=== PATIENT | male | born 1990 | race African-American/Black ===

== ENCOUNTER 2020-02-28 22:12 | Emergency (ER) | payer SELFPAY ==
[2020-02-28] MEDS ORDERED: ACETAMINOPHEN 325 MG TABLET PO ONE (23:48)
[2020-02-29 00:06] LABS: APPEARANCE,URINE SLIGHTLY-CLOUDY; BILIRUBIN,URINE NEGATIVE (NEGATIVE); COLOR,URINE YELLOW; GLUCOSE, URINE NEGATIVE (NEGATIVE); KETONES,URINE 80 mg/dL (NEGATIVE); LEUKOCYTE ESTERASE,URINE NEGATIVE (NEGATIVE); NITRITE,URINE NEGATIVE (NEGATIVE); PROTEIN,URINE >=500 mg/dL (NEGATIVE); URINE SPECIFIC GRAVITY 1.015; UROBILINOGEN,URINE NEGATIVE mg/dL (<2.0)
[2020-02-29 00:11] LABS: ABSOLUTE BASOPHILS # (AUTO) 0.1 10^3/uL (0.0-0.2); ABSOLUTE LYMPHOCYTES (AUTO) 0.7 10^3/uL (0.5-4.7); ABSOLUTE MONOCYTES (AUTO) 0.6 10^3/uL (0.1-1.4); ABSOLUTE NEUT (AUTO) 7.1 10^3/uL (1.7-8.2); BASOPHILS % (AUTO) 0.7 % (0-2); EOSINOPHILS % (AUTO) 0.6 % (0-6); HEMATOCRIT 45.9 % (37.9-51.0); HEMOGLOBIN 16.6 g/dL (13.5-17.0); LYMPHOCYTES % (AUTO) 8.6 % (13-45); MEAN CORPUSCULAR HEMOGLOBIN 31.6 pg (27.0-33.4); MEAN CORPUSCULAR HGB CONC 36.2 g/dL (32.0-36.0); MEAN CORPUSCULAR VOLUME 87 fl (80-97); MONOCYTES % (AUTO) 6.8 % (3-13); PLATELET COUNT 292 10^3/uL (150-450); RED BLOOD COUNT 5.25 10^6/uL (4.35-5.55); SEGMENTED NEUTROPHILS % (AUTO) 83.3 % (42-78); TOTAL CELLS COUNTED % (AUTO) 100 %; WHITE BLOOD COUNT 8.5 10^3/uL (4.0-10.5)
[2020-02-29 00:16] LABS: ALBUMIN 5.3 g/dL (3.5-5.0); ALKALINE PHOSPHATASE 110 U/L (38-126); ANION GAP 13 (5-19); ASPARTATE AMINO TRANSFERASE 35 U/L (17-59); BILIRUBIN,DIRECT 0.3 mg/dL (0.0-0.4); BILIRUBIN,TOTAL 1.2 mg/dL (0.2-1.3); BLOOD UREA NITROGEN 14 mg/dL (7-20); CARBON DIOXIDE 24 mmol/L (22-30); CHLORIDE 101 mmol/L (98-107); GLUCOSE 83 mg/dL (75-110); POTASSIUM 4.8 mmol/L (3.6-5.0); TOTAL PROTEIN 8.7 g/dL (6.3-8.2)
[2020-02-29 00:18] LABS: ACETAMINOPHEN < 10 ug/mL (10-30); ALCOHOL < 10 mg/dL (NONE DETECTED); SALICYLATE < 1.0 mg/dL (2.0-20.0)
[2020-02-29 00:27] LABS: URINE AMPHETAMINES SCREEN NEGATIVE; URINE BARBITURATES SCREEN NEGATIVE; URINE BENZODIAZEPINES SCREEN NEGATIVE; URINE METHADONE SCREEN NEGATIVE; URINE PHENCYCLIDINE SCREEN NEGATIVE
[2020-02-29 00:57] LABS: URINE COCAINE SCREEN UNCONFIRMED POSITIVE; URINE MARIJUANA (THC) SCREEN UNCONFIRMED POSITIVE
--- NOTE | 2020-02-29 01:39 | RADIOLOGY REPORT (SQ) ---
EXAM: CT HEAD WITHOUT CLINICAL INDICATION: 30-year-old male with first time seizure. COMPARISON: None. TECHNIQUE: CT brain without contrast. This exam was performed according to our departmental dose optimization program which includes use of automated exposure control, adjustment of the mA and/or kV according to patient size and/or use of iterative reconstruction technique. FINDINGS: Streak and motion artifact limits evaluation. The ventricles, sulci, and cisterns are within normal limits. The huitron-white matter differentiation is preserved. There is no mass effect, midline shift, intra- or extra-axial fluid collection/acute hemorrhage. The osseous structures are unremarkable. The paranasal sinuses and mastoid air cells are clear. IMPRESSION: No acute intracranial abnormalities. In the setting of first time seizure, further evaluation with MRI is recommended.
--- NOTE | 2020-02-29 01:56 | ER Document Report ---
ED General <DONATOHANK - Last Filed: 02/29/20 12:16> <ALEX CARLSON - Last Filed: 03/02/20 00:10> <HALIMA THAKKAR - Last Filed: 03/02/20 07:27> - General Chief Complaint: Seizure Stated Complaint: POSSIBLE SEIZURES Primary Care Provider: [facility] [Outside] - Follow up as needed [facility] [Outside] - Follow up as needed Notes: 30-year-old male denying any past medical history, history of depression pr esents with possible seizure approximately 1 week prior to arrival and suicidal ideation. Patient says that he is having a mental breakdown and does not want to live anymore. Repeatedly asked patient to elaborate on his symptoms but he refuses to. Patient endorses having been on Prozac in the past, but will not elaborate. Patient says that he had a seizure Friday and denies having ever had a seizure before, but not willing to give details. Patient endorses using marijuana and cocaine recently and being tired. Patient denies any trauma, alcohol/benzo/barbiturate abuse or withdrawal, weakness or numbness, change in vision/speech/gait, vertigo, bleeding diatheses, anticoagulation, IV drug use. Endorses mild diffuse headache for the past hour. (HALIMA THAKKAR) - Related Data Allergies/Adverse Reactions: No Known Allergies Allergy (Unverified 02/29/20 08:45) Past Medical History - Social History Family History: Reviewed & Not Pertinent <ALEX CARLSON - Last Filed: 03/02/20 00:10> - General Information source: Patient - Social History Smoking Status: Current Every Day Smoker Frequency of alcohol use: Occasional <HALIMA THAKKAR - Last Filed: 03/02/20 07:27> Review of Systems - Review of Systems -: Yes ROS unobtainable due to patient's medical condition - Secondary to patient cooperation <HALIMA THAKKAR - Last Filed: 03/02/20 07:27> Physical Exam <HALIMA THAKKAR - Last Filed: 03/02/20 07:27> - Vital signs Vitals: Temp 97.9 F 02/28/20 22:14 - Notes Notes: PHYSICAL EXAMINATION: GENERAL: Well-appearing, well-nourished somnolent young male lying in stretcher with no visible signs of discomfort HEAD: Atraumatic, normocephalic. EYES: Pupils equal round and appropriate constriction, sclera anicteric, conjunctiva are normal. ENT: nares patent, moist mucous membranes. NECK/BACK: Normal range of motion, supple without lymphadenopathy, no C /T/L/spinal tenderness or deformity LUNGS: Breath sounds clear to auscultation bilaterally and equal. No wheezes rales or rhonchi. Normal respiratory rate and effort HEART: Regular rate and rhythm without murmurs ABDOMEN: Soft, nontender, no guarding, no masses, no CVAT EXTREMITIES: Normal range of motion, no pitting or edema. No cyanosis. NEUROLOGICAL: Awake, alert, conversing appropriately, moves all extremities spontaneously, cranial nerves grossly intact but exam limited by patient lack of cooperation PSYCH: Normal mood, flat affect, does not appear to be responding to internal stimuli, poverty of speech SKIN: Warm, Dry, normal turgor, no rashes or lesions noted. (HALIMA THAKKAR) Course - Laboratory Results Result Diagrams: 02/28/20 23:45 02/28/20 23:45 <HANK SEWELL - Last Filed: 02/29/20 12:16> - Laboratory Results Result Diagrams: 02/28/20 23:45 02/28/20 23:45 Critical Laboratory Results Reviewed: No Critical Results - Radiology Results Critical Radiology Results Reviewed: No Critical Results <ALEX CARLSON Tabatha - Last Filed: 03/02/20 00:10> - Laboratory Results Result Diagrams: 02/28/20 23:45 02/28/20 23:45 <HALIMA THAKKAR - Last Filed: 03/02/20 07:27> - Re-evaluation Re-evalutation: 02/29/20 01:53 Patient presenting with "mental breakdown" and suicidal ideation, no signs of medical etiology, no signs of self-harm, no signs of trauma, patient endorses recent drug use and is mildly somnolent, symptoms most likely secondary to recent cocaine use with post-stimulant "crash." Given patient reports seizure last week and poor historian endorsing headache will obtain CT head to rule out mass or signs of increased ICP, no indication for CTA at this time given duration of headache 1 hour, no signs of meningitis, no signs of infection, no signs of trauma. Unknown if patient had provoking factors of seizure but patient denies. Given suicidal ideation I placed patient on IVC pending psych eval during day shift, obtained IVC labs and head CT without any emergent findings, patient medically cleared at this time, will continue to monitor pending psych eval. (HALIMA THAKKAR) - Vital Signs Vital signs: Temp Pulse Resp BP Pulse Ox 98.3 F 66 12 122/69 98 02/29/20 07:53 02/29/20 07:53 02/29/20 07:53 02/29/20 07:53 02/29/20 07:53 - Laboratory Results Laboratory Results Interpreted: 02/28/20 02/28/20 02/28/20 23:45 23:45 23:45 MCHC 36.2 H Lymph % (Auto) 8.6 L Seg Neutrophils % 83.3 H Total Protein 8.7 H Albumin 5.3 H Urine Protein >=500 H Urine Ketones 80 H Urine Blood SMALL H Salicylates < 1.0 L Acetaminophen < 10 L - EKG Interpretation by Me Additional EKG results interpreted by me: 03/02/20 07:27 Sinus rhythm, no significant ST elevations or depressions, no significant T wave abnormalities (HALIMA THAKKAR) Discharge <HANK SEWELL - Last Filed: 02/29/20 12:16> <ALEX CARLSON - Last Filed: 03/02/20 00:10> <HALIMA THAKKAR - Last Filed: 03/02/20 07:27> - Discharge Clinical Impression: Suicidal ideations Depression Qualifiers: Depression Type: unspecified Qualified Code(s): F32.9 - Major depressive disorder, single episode, unspecified Condition: Stable Disposition: HOME, SELF-CARE Additional Instructions: You have been evaluated by both medical and behavioral health teams for passive suicidal ideation. You have been deemed appropriate for discharge. While in [facility] emergency department you received the following services/or had access to: Medical screening and assessment, nursing services, dietary services, pharmacological services, one-on-one counseling and/or psychotherapy, environmental services, and continuous observation by a patient safety aide. Depression Your evaluation reveals that you have mental depression. While symptoms may be vague, they often include disturbance of sleep, fatigue, loss of appetite, and general loss of interest in life. While depression may be a side effect of drugs, or a reaction to a major change in your life, many cases have no known cause. If depression is acute, and related to a major loss in your life, you can expect it to clear completely with time. If you have been depressed a long time, are prone to repeated bouts of depression or low mood, or have been thinking of suicide, get help. Depression can be treated with anti-depressant medication and counselling. Long-term depression will often take a few weeks to clear, even with appropriate medication. Follow-up care is important. Contact your physician, the hospital emergency center, crisis line, or your counsellor if you are losing control or having self-destructive thoughts. Suicidal Ideation Suicidal ideation is a common medical term for thoughts about suicide, which may be as detailed as a formulated plan, without the suicidal act itself. Although most people who undergo suicidal ideation do not commit suicide, some go on to make suicide attempts. The range of suicidal ideation varies greatly from fleeting to detailed planning, role playing, and unsuccessful attempts. While thoughts about suicide are common, most people do not carry out serious actions to commit suicide. However, based upon your evaluation and discussion with you, we believe you are not currently at risk to act upon your thoughts of suicide. Therefore, you will be discharged home. Follow up care: You are currently not involved in outpatient therapy, but are highly recommended to begin outpatient services. You are also recommended to request medication management with outpatient provider. You have been given a community outpatient referral list to include phone numbers for [facility] and [facility] mobile crisis. You were also given information on [place] crisis center if you felt it was necessary to go voluntarily. If you experience worsening or a significant change in your symptoms, notify the physician immediately, utilize mobile crisis, or return to the Emergency Department at any time for re-evaluation. Dr. Suarez was consulted to care management of this patient; attending physicians in agreement with recommendations and disposition. Forms: Return to Work Referrals: [facility] [Outside] - Follow up as needed [facility] [Outside] - Follow up as needed
[2020-02-29 07:54] VITALS: BP 122/69
--- NOTE | 2020-02-29 09:51 | EKG REPORT ---
SEVERITY:- OTHERWISE NORMAL ECG - SINUS ARRHYTHMIA, RATE 47-75 : Confirmed by: Ligia Cronin MD 29-Feb-2020 09:51:27
--- NOTE | 2020-02-29 18:11 | PSYCHOLOGICAL NOTE ---
Psych Note - Psych Note Date seen by psych provider: 02/29/20 Time seen by psych provider: 10:21 Psych Note: Reason for Consult: suicidal ideation, depression Consent permissions: alcon Azul, ; Mayela Gauriant [phone]; Dulce Chung corporation officer [phone] Patient is a 30 year old male who was admitted to the ED via EMS and petitioned for IVC. Patient states he did not come EMS and came via POV with friend. (This was clarified later as patient went to [place] via POV and was admitted to [facility] via EMS after having a seizure). Patient reports passive suicidal ideations at time of admission. He denies current SI, plan, and intent. He denies homicidal ideation, plan, and intent. He reports he overthinks things a lot and has a lot of built up stress. Patient reports he [facility] and was [facility] in November 2019. He states he lives with his girlfriend and works for a [employer]. When asked about depression, he states he does not feel anything, but continues to deny suicidal ideation, plan, and intent. Patient reports cocaine use (3 times since out of [facility]), marijuana use, and Xanax use occasionally. He reports history of depression and anxiety and was prescribed Prozac about 7 years ago. Patient denies history of suicide attempts and history of inpatient hospitalizations. Patient was alert and oriented to self, person, place, time and situation. Mood was euthymic with congruent affect. He denies current suicidal and homicidal ideation, plan, and intent. Patient did not appear to be responding to internal stimuli as evidenced by fair eye contact and answering questions appropriately when addressed. Thought processes are linear and organized. Conversational speech was within normal limits for rate, tone and prosody. Intellectual abilities are estimated to be average. Insight and judgment are fair evidenced by coming to ED for passive SI and impulse control was poor as evidenced by drug use. Patient engages appropriately. He demonstrates future forward goal oriented thinking as he asks for a note for work to let them know he was at the hospital. Clinical Presentation: suicidal ideations, denies plan and intent; depression; drug use IVC Criteria per [place] 122C Dangerous to others Within the relevant past the individual No has inflicted or attempted to inflict or threatened to inflict serious bodily harm on another AND No that there is a reasonable probability that this conduct will be repeated. OR No has acted in such a way as to create a substantial risk of serious bodily harm to another AND No that there is a reasonable probability that this conduct will be repeated. OR No has engaged in extreme destruction of property AND NO that there is a reasonable probability that this conduct will be repeated. Previous episodes of dangerousness to others, when applicable, may be considered when determining reasonable probability of future dangerous conduct. Clear, cogent, and convincing evidence that an individual has committed a homicide in the relevant past is prima facie evidence of dangerousness to others. Dangerous to self Within the relevant past the individual has done any of the following: acted in such a way as to show ALL of the following: No The individual would be unable without care, supervision, and the continued assistance of others not otherwise available, to exercise self- control, judgment, and discretion in the conduct of the individual's daily responsibilities and social relations or to satisfy the individual's need for nourishment, personal or medical care, senior care, or self-protection and safety. AND No There is a reasonable probability of the individual suffering serious physical debilitation within the near future unless adequate treatment is given. A showing of behavior that is grossly irrational, of actions that the individual is unable to control, of behavior that is grossly inappropriate to the situation, or of other evidence of severely impaired insight and judgment shall create a prima facie inference that the individual is unable to care for himself or herself. OR No has attempted suicide or threatened suicide Passive SI endorsed AND No that there is a reasonable probability of suicide unless adequate treatment is given Denies current SI, plan, and intent; demonstrates future forward goal oriented thinking as he asks for a note for work to let them know he was at the hospital. OR No has mutilated himself or herself or attempted to mutilate himself or herself AND No that there is a reasonable probability of serious self-mutilation unless adequate treatment is given. NOTE: Previous episodes of dangerousness to self, when applicable, may be considered when determining reasonable probability of physical debilitation, suicide, or self-mutilation. Impression\plan: Patient is cleared from psychiatric services. Patient is recommended to rescind IVC. Patient was admitted to the ED for passive suicidal ideations. He denies current SI, plan, and intent. He demonstrates future forward goal oriented thinking as he asks for a note for work to let them know he was at the hospital. He discusses working at a [employer] and having a girlfriend. Patient has no significant mental health history noted. Patient is not involved with outpatient services. He is recommended to go to [facility] to establish care and begin therapy and medication management. Patient was given resources for outpatient providers and highlighted was [place], as they take self-pay, and [facility] mobile crisis. Patient was also given information for [facility] and informed how to go about a voluntary admission if he felt he needed inpatient treatment on a voluntary level. Patient reports plan to go back home with his girlfriend. He reports planning to follow up with [facility] services for medication management with a walk-in session this week. After discovering patient was at [facility] and he came to the ED for medical clearance, he agreed to go back to [place]. Patient is following up at [facility]. [place] held patients bed and this was confirmed by Tania Martinez, with behavioral health. Patient was recommended if symptoms return or worsen to retu rn to the ED or utilize mobile crisis. Dr. Suarez was consulted to care management of this patient; attending physicians in agreement with recommendations and disposition. [id number] called Mayela to receive corporation officer, Dulce Chung, felix. Mayela was confused why patient was discharging when the website said 3-5 days treatment. There was confusion on patient arriving EMS and POV, missing items at [facility], and address mix up at location. It was discovered patient was admitted to [facility] for treatment and was sent to [facility] for medical clearance. Patient was brought to [facility] via EMS last night. After psych eval at [facility], patient was cleared and is going to go back to [facility] for further treatment on a voluntary level. Patient was walked to [facility] where [facility] staff and [place] staff met retirement at [phone] called Mayela Duke to inform her patient was walked to [facility] and that would be her new point of contact for patient updates. She inquired ab out seizure and was informed a CT scan. She stated seizure was new last week and she did not know about yesterday. Reports patient does not typically drink alcohol, however these past few days has been drinking more. She reports Xanax use and states he has not used in 3-4 days.
--- NOTE | 2020-03-02 00:10 | ER Document Report ---
Doctor's Note Notes: 02/29/20 14:20 PHYSICAL EXAMINATION: GENERAL: Appears well, healthy, well-nourished, no acute distress. LUNGS: Equal breath sounds bilaterally and clear to auscultation. No wheezes rales or rhonchi. CARDIOVASCULAR: S1-S2, regular rate, regular rhythm. Radial pulses 2+, normal. ABDOMEN: Normoactive bowel sounds. Soft, nontender, no guarding, no rebound tenderness, and no masses palpated. PSYCH: Normal mood, normal affect. Patient denies any suicidal or homicidal ideation. Patient is currently sober. Denies any visual or auditory hallucinations. Mental health has evaluated the patient. He will follow-up on a voluntary basis. IVC rescinded by Dr. Cooper. Follow-up precautions were given. Verbal discharge instructions were given to the patient. They verbalized understanding. They are stable for discharge.
== END 2020-02-29 17:13 | disposition home or self-care (01) ==
LOC: ER 22:12
DX: F32.9 Major depressive disorder, single episode, unspecified (principal); R45.851 Suicidal ideations; R53.83 Other fatigue; R40.0 Somnolence; R51.9 Headache, unspecified; F17.200 Nicotine dependence, unspecified, uncomplicated
CPT/HCPCS: 36415; 70450; 80053; 80307; 81001; 85025; 93005; 93010; 99285